=== PATIENT | female | born 1955 | race Caucasian/White ===

== ENCOUNTER 2018-01-30 18:49 | Emergency (ER) | payer OTHER ==
[~2018-01-30] VITALS: Ht 160 cm; Wt 104.3 kg
[~2018-01-30 18:49] MED LIST: ALBUTEROL INH IH; ALEVE220 MG PO; ALLOPURINOL 10100 M1 PO; AMITRIPTYLINE H25 M2 GT; AMITRIPTYLINE H25 M2 PO; ANXIETY MED PO; AUGMENTIN 875875 MG PO; AVELOX 400 MG400 MG PO; BAYER CHEWABLE81 MG PO; FOLIC ACID 1 MG1 MG PO; HYDROCODONE-AP1 EAC6 PO; IBUPROFEN 800800 M1 PO; KEFLEX500 M1 PO; LEVAQUIN 750 M750 MG PO; LEVOTHYROXIN0.125 M1 PO; LEVOTHYROXINE 0.1 MG PO; LEVOTHYROXINE 0.15MG PO; MECLIZINE 25 MG25 M1 PO; MEDROLDOSEPACK PO; MUCINEX600 MG PO; NITROGLYCERIN0.4 MG SUBLING; NOHOMEMEDICATIONS; ONDANSETRON HCL4 M2 PO; PLAVIX 75 MG TA75 M1 PO; PREDNISONE 10 M10 MG PO; PROPANOLOL PO; PROTONIX40 M1 PO; SYNTHROID75 MCG PO; TYLENOL325 MG PO; VALIUM5 MG PO; VENTOLIN HFA 1818 GM INH; ZOLOFT 50 MG TA50 M1 PO; ZOLOFT100 MG PO; ZPAK PO
[2018-01-30 19:38] LABS: ABSOLUTE EOSINOPHILS 0.3 thou/uL (0.0-0.7); ABSOLUTE LYMPHOCYTES 1.8 thou/uL (0.8-5.3); ABSOLUTE MONOCYTES 0.6 thou/uL (0.0-1.2); BASOPHILS 0.5 %; EOSINOPHILS 3.6 %; HEMATOCRIT 38.8 % (37.0-47.0); HEMOGLOBIN 13.3 gm/dL (12.0-15.0); LYMPHOCYTES 22.9 %; MCHC 34.3 g/dL (28.0-37.0); MCV 84.5 fL (80.0-100.0); MONOCYTES 7.6 %; MPV 7.5 fl. (7.2-11.1); NUCLEATED RBCS 0 /100WBC; PLATELET COUNT* 219 thou/uL (150-400); POLYS 65.4 %; RBC 4.59 mil/uL (4.20-5.00); RDW-CV 13.7 % (10.5-14.5); WBC 7.7 thou/uL (4.0-11.0)
[2018-01-30 19:44] LABS: CALCIUM 8.5 mg/dL (8.5-10.1); CREATININE 0.8 mg/dL (0.6-1.3)
[2018-01-30 19:49] LABS: ALBUMIN 3.2 g/dL (3.4-5.0); TOTAL PROTEIN 7.2 g/dL (6.4-8.2)
[2018-01-30 19:50] LABS: INFLUENZA A ANTIGEN None Detected (None Detect); INFLUENZA B ANTIGEN None Detected (None Detect)
[2018-01-30] MEDS ORDERED: PREDNISONE 20 M20 MG PO (20:36)
[2018-01-30] MEDS ORDERED: AMOXICILLIN 50500 MG PO (20:36)
[2018-01-30] MEDS ORDERED: DELSYM COU30 MG/5 M1 PO (20:36)
[2018-01-30] MEDS ORDERED: PROAIR HFA8.5 GM INH (20:36)
[2018-01-30 20:52] VITALS: BP 142/48
--- NOTE | 2018-01-31 09:54 | EKG ---
[place] [address] ELECTROCARDIOGRAM REPORT Name: ARI TREVINO Room: [facility]#: [id number] Admission: 01/30/18 Attend Phys: Discharge: 01/30/18 Date of : 57 Report #: [id number] THIS REPORT FOR: //name// [facility] ED Test Date: 2018-01-30 Test Time: 20:04:15 Pat Name: ARI TREVINO Department: Room: Gender: F [employer]door [employer] Instructor: DENIA Pa : [id number] Requested By: Wilberto Hazel Order Number: [id number] MD: Stephen Lazo Measurements Intervals [place] Rate: 61 P: 35 W[place]: 198 QRS: -28 QRSD: 107 T: 57 QT: 417 QTc: 420 Interpretive Statements Sinus rhythm Incomplete RBBB and LAFB Compared to ECG 08/04/2016 20:10:56 Incomplete right bundle-branch block now present Electronically Signed On 01-31-2018 9:54:34 CDT by Stephen Lazo [email or web address] <ELECTRONICALLY SIGNED> By: Stephen Lazo MD, [facility] 01/31/18 0954 03 03 Setphen Lazo MD, FAC /EPI
== END 2018-01-30 20:53 | disposition home or self-care (01) ==
LOC: M.ERS 18:49
PROVIDERS: Nurse Practitioner Psychiatric/Mental Health
DX: J20.9 Acute bronchitis, unspecified (principal); L40.9 Psoriasis, unspecified; Z88.2 Allergy status to sulfonamides

== ENCOUNTER 2018-03-06 17:04 | Emergency (ER) | payer OTHER ==
[~2018-03-06] VITALS: Ht 160 cm; Wt 109.8 kg
[~2018-03-06 17:04] MED LIST changes: +AMOXICILLIN 50500 MG PO; +DELSYM COU30 MG/5 M1 PO; +PREDNISONE 20 M20 MG PO; +PROAIR HFA8.5 GM INH
[2018-03-06 17:43] LABS: ABSOLUTE BASOPHILS 0.1 thou/uL (0.0-0.2); ABSOLUTE EOSINOPHILS 0.2 thou/uL (0.0-0.7); ABSOLUTE LYMPHOCYTES 1.8 thou/uL (0.8-5.3); ABSOLUTE MONOCYTES 0.8 thou/uL (0.0-1.2); ABSOLUTE NEUTROPHILS 9.4 thou/uL (1.6-8.1); BASOPHILS 0.4 %; EOSINOPHILS 1.4 %; HEMATOCRIT 40.5 % (37.0-47.0); HEMOGLOBIN 13.9 gm/dL (12.0-15.0); LYMPHOCYTES 14.9 %; MCH 28.7 pg (26.0-34.0); MCHC 34.4 g/dL (28.0-37.0); MCV 83.5 fL (80.0-100.0); MONOCYTES 6.7 %; MPV 7.6 fl. (7.2-11.1); NUCLEATED RBCS 0 /100WBC; PLATELET COUNT* 179 thou/uL (150-400); POLYS 76.6 %; RBC 4.85 mil/uL (4.20-5.00); RDW-CV 13.7 % (10.5-14.5); WBC 12.3 thou/uL (4.0-11.0)
[2018-03-06 17:52] LABS: CALCIUM 8.5 mg/dL (8.5-10.1); CREATININE 0.9 mg/dL (0.6-1.3)
[2018-03-06 18:07] LABS: ALBUMIN 3.2 g/dL (3.4-5.0); TOTAL BILIRUBIN 1.5 mg/dL (<0.1-1.0)
[2018-03-06] MEDS ORDERED: AZITHROMYCIN 2250 MG PO (18:46)
[2018-03-06] MEDS ORDERED: PREDNISONE 20 M20 MG PO (18:46)
[2018-03-06] MEDS ORDERED: SPACE CHAMBER1 EACH INH (18:46)
[2018-03-06] MEDS ORDERED: VENTOLIN HFA 1818 GM INH (18:46)
[2018-03-06] MEDS ORDERED: ALBUTEROL2.5 MG/0.5 INH (18:50)
[2018-03-06 19:40] VITALS: BP 125/41
== END 2018-03-06 19:47 | disposition home or self-care (01) ==
LOC: M.ERS 17:04
PROVIDERS: Nurse Practitioner Psychiatric/Mental Health
DX: J20.9 Acute bronchitis, unspecified (principal); Z90.49 Acquired absence of other specified parts of digestive tract; Z88.1 Allergy status to other antibiotic agents; Z88.8 Allergy status to other drugs, medicaments and biological substances

== ENCOUNTER 2019-10-09 08:41 | Emergency (ER) | payer OTHER ==
[~2019-10-09] VITALS: Ht 160 cm; Wt 108.0 kg
[~2019-10-09 08:41] MED LIST changes: +ALBUTEROL2.5 MG/0.5 INH; +AZITHROMYCIN 2250 MG PO; +SPACE CHAMBER1 EACH INH
[2019-10-09] MEDS ORDERED: METFORMIN HCL500 M3 PO (09:02)
[2019-10-09] MEDS ORDERED: B/P MED (09:02)
[2019-10-09] MEDS ORDERED: ANXIETY MED (09:02)
[2019-10-09] MEDS ORDERED: ZPAK PO (09:18)
[2019-10-09] MEDS ORDERED: VENTOLIN HFA 1818 GM INH (09:18)
[2019-10-09] MEDS ORDERED: PREDNISONE 20 M20 M1 PO (09:18)
[2019-10-09 09:55] VITALS: BP 118/54
== END 2019-10-09 09:57 | disposition home or self-care (01) ==
LOC: M.ERS 08:41
DX: J40 Bronchitis, not specified as acute or chronic (principal); I10 Essential (primary) hypertension; F41.9 Anxiety disorder, unspecified; E11.9 Type 2 diabetes mellitus without complications; I25.2 Old myocardial infarction; Z90.49 Acquired absence of other specified parts of digestive tract; Z88.2 Allergy status to sulfonamides

== ENCOUNTER 2019-11-29 17:36 | Inpatient (IN) | payer OTHER ==
[~2019-11-29] VITALS: Ht 160 cm; Wt 106.6 kg
[~2019-11-29 17:36] MED LIST changes: +B/P MED; +HYDROXYZINE HCL25 M2 PO; +METFORMIN HCL500 M3 PO; +PREDNISONE 20 M20 M1 PO
[2019-11-29 17:47] VITALS: BP 107/44
[2019-11-29 19:44] LABS: INFLUENZA A ANTIGEN Negative (Negative); INFLUENZA B ANTIGEN Negative (Negative)
[2019-11-29 20:02] LABS: ABSOLUTE LYMPHOCYTES 1.2 thou/uL (0.8-5.3); ABSOLUTE MONOCYTES 0.6 thou/uL (0.0-1.2); ABSOLUTE NEUTROPHILS 3.6 thou/uL (1.6-8.1); BASOPHILS 0.2 %; EOSINOPHILS 0.3 %; HEMOGLOBIN 13.6 gm/dL (12.0-15.0); LYMPHOCYTES 21.7 %; MCH 29.2 pg (26.0-34.0); MCV 83.5 fL (80.0-100.0); MONOCYTES 11.3 %; MPV 8.3 fl. (7.2-11.1); NUCLEATED RBCS 0 /100WBC; PLATELET COUNT* 120 thou/uL (150-400); POLYS 66.5 %; RBC 4.67 mil/uL (4.20-5.00); RDW-CV 14.3 % (10.5-14.5); WBC 5.4 thou/uL (4.0-11.0)
[2019-11-29 20:04] LABS: POTASSIUM 3.6 mmol/L (3.5-5.1)
[2019-11-29 20:09] LABS: ALBUMIN 3.1 g/dL (3.4-5.0); MAGNESIUM 1.6 mg/dL (1.8-2.4); TOTAL BILIRUBIN 1.4 mg/dL (<0.1-1.0); TOTAL PROTEIN 6.8 g/dL (6.4-8.2)
[2019-11-29 20:48] LABS: URINE BLOOD 2+ (Negative); URINE COLOR YELLOW; URINE GLUCOSE-RANDOM NEGATIVE (Negative); URINE KETONES TRACE (Negative); URINE PROTEIN 1+ (Negative)
[2019-11-29 20:56] LABS: URINE BILIRUBIN 1+ (Negative); URINE LEUKOCYTES-REFLEX 2+ (Negative); URINE NITRITE-REFLEX POSITIVE (Negative)
[2019-11-29 20:57] LABS: ICTOTEST (BILI CONFIRMATORY) Negative (Negative); URINE CLARITY CLOUDY
[2019-11-29 21:10] LABS: SQUAMOUS 4-10 Moderate /LPF (0-3)
[2019-11-29 21:11] LABS: BACTERIA-REFLEX >30 Many /HPF (None Seen); CASTS None Seen /LPF (None Seen); CRYSTALS None Seen /LPF (None Seen); URINE RBC 3-10 Few /HPF (0-2); URINE WBC-REFLEX >25 Many /HPF (0-5)
[2019-11-29 23:00] VITALS: BP 112/56; BP 124/47
--- NOTE | 2019-11-30 03:38 | NUR ---
PATIENT ARRIVED FROM ER VIA CART TO ROOM 311. PT ABLE TO TRANSFER FROM CART TO BED WITH CLOSE STANDBY. PT ON O2 @ 2 LITERS PER NASAL CANNULA. PT GIVEN PAIN MEDS IN ER AND DENIES PAIN AT THIS TIME. PT IS FROM HOME WITH HER , DAUGHTER AND GRANDCHILDREN. PT WITH SEVERE REDNESS AND ODOR BELIEVED TO BE YEAST UNDER BREASTS, BETWEEN LEGS AND IRIS AREA. PT ALSO HAS SMALL SCABBED BITES ALL OVER HER BODY. PT HAD UNDER BREAST AND IRIS AREA CLEANED AND RX CREAM PUT ON IN ER. PT REFUSING PICTURES AT THIS TIME STATING IT HURTS TO RAISE BREASTS AND MOVE LEGS TO EXPOSE IRIS AREA FOR PICTURE. EXPLAINED TO PT THAT SHE HAD A RIGHT TO REFUSE BUT BENEFICIAL TO HAVE PICTURES TO MAKE SURE AREAS ARE IMPROVING WITH TREATMENT. PT AGREED TO HAVE PICS TAKEN LATER. PT WITH DIMINISHED LUNG SOUNDS AND PRODUCTIVE COUGH. PT ORIENTED TO ROOM/POLICIES AND VERBALIZES UNDERSTANDING. FREQUENTLY USED ITEMS AND CALL LIGHT WITHIN REACH. SIDERAILS UPX2 AND BED ALARM ON. WILL CONTINUE TO MONITOR.
[2019-11-30 08:00] VITALS: BP 135/48
[2019-11-30 17:46] VITALS: BP 135/56
[2019-12-01] VITALS: BP 123/60
[2019-12-01 05:37] LABS: GLYCOHEMOGLOBIN (HGB A1C) 6.6 % (4.8-5.6)
[2019-12-01 06:17] LABS: HEMATOCRIT 34.6 % (37.0-47.0); HEMOGLOBIN 12.2 gm/dL (12.0-15.0); MCH 29.3 pg (26.0-34.0); MCHC 35.2 g/dL (28.0-37.0); MCV 83.2 fL (80.0-100.0); MPV 8.2 fl. (7.2-11.1); RBC 4.16 mil/uL (4.20-5.00); RDW-CV 14.5 % (10.5-14.5); WBC 4.7 thou/uL (4.0-11.0)
[2019-12-01 06:32] LABS: ALBUMIN 2.7 g/dL (3.4-5.0); CALCIUM 7.4 mg/dL (8.5-10.1); CREATININE 0.7 mg/dL (0.6-1.3); POTASSIUM 4.1 mmol/L (3.5-5.1); TOTAL BILIRUBIN 0.6 mg/dL (<0.1-1.0); TOTAL PROTEIN 6.1 g/dL (6.4-8.2)
[2019-12-01 08:15] VITALS: BP 129/52
[2019-12-01 16:00] VITALS: BP 135/52
--- NOTE | 2019-12-01 17:40 | NUR ---
ALERT AND ORIENTED X4. UP WITH STAND BY ASSIST TO BEDSIDE COMMODE. CONTINUES TO RECEIVE IV AND PO ANTIBIODICS AND BREATHING TREATMENTS WITHOUT ADVERSE REACTIONS OR SIDE EFFECTS. DENIES NEED FOR PAIN MEDICATIONS. AREAS UNDER BREAST AND IN GROIN AREAS TREATMENTS DONE AND NEW INTERDRY APPLIED. IV LEAKING SO NEW IV STARTED. CONTINENT OF BOWEL AND BLADDER. CALL LIGHT WITHIN REACH. REMAINS ON O2 AT 2L/NC TO KEEP O2 SAT IN 90'S,
[2019-12-01 20:00] VITALS: BP 132/58
[2019-12-02 04:57] LABS: HEMATOCRIT 34.5 % (37.0-47.0); MCH 29.4 pg (26.0-34.0); MCHC 34.8 g/dL (28.0-37.0); MCV 84.3 fL (80.0-100.0); MPV 8.5 fl. (7.2-11.1); RBC 4.09 mil/uL (4.20-5.00); RDW-CV 14.4 % (10.5-14.5)
[2019-12-02 05:21] LABS: CALCIUM 7.3 mg/dL (8.5-10.1); CREATININE 0.8 mg/dL (0.6-1.3); MAGNESIUM 1.9 mg/dL (1.8-2.4)
--- NOTE | 2019-12-02 07:00 | NUR ---
PT SLEPT WELL OVERNIGHT. HS ACCUCHECK 299, INSULIN GIVEN. AM LABS. RAC SL. O2 2L NC. UP WITH SBA TO BSC TO VOID WITHOUT DIFFICULTY. SKIN UNDER BREASTS AND ABD FOLDS AND IRIS AREA VERY MOIST AND RED. AREAS CLEANSED THIS MORNING WITH SOAP AND WATER, PATTED DRY AND NYSTATIN CREAM AND POWDER APPLIED. INTERDRY APPLIED. ABLE TO USE CALL LITE AND MAKE NEEDS KNOWN.
[2019-12-02 07:40] VITALS: BP 142/57
--- NOTE | 2019-12-02 13:17 | NUR ---
Nutrition: screen for BMI >40. Wt up past few years. Albumin 2.7. Prednisone and other meds reviewed. Pt reported some trouble chewing but declined soft/mech alt diet. Had eaten 75% of lunch at visit and was not finished eating. Pt does not appear at significant nutrition risk at this time.
--- NOTE | 2019-12-02 15:17 | NUR ---
SW met with pt to complete initial assessment, introduce self, and SW role. Pt alert, oriented. Pt lives at home with . Pt does not have any DME at home already. Pt does not have insurance. SW explained to accept call from [employer] as they are company who can assist pt with determining eligibility for Medicaid as well as assist with applying for Medicaid. SW mentioned possible assistance and support needed at dc; pt did not seem concerned with dc home with . SW to continue to follow to assist with safe dc planning.
[2019-12-02 16:00] VITALS: BP 151/59
--- NOTE | 2019-12-02 17:00 | NUR ---
PT A&OX4 VSS. NYSTATIN AND INTERDRY UNDER BREASTS AND ABD FOLDS TO TREAT YEAST. PT UP TO RECLINER AND TO RESTROOM WITH SBA AND WALKER. GAIT STEADY. MULTIPLE SMALL SCABS OVER TORSO NOTED AND REPORTED TO BE PRESENT UPON ADMISSION. PT ON 2L O2 BY NASAL CANNULA. PT IS ACCUCHECK, INSULN ADMINISTERED INDICATED. VANC TROUGH DRAWN THIS AM AND DOSE ADJUSTED BY PHARMACY. IV TO RAC, LINE PATENT, NO REDNESS/SWELLING NOTED AT SITE. PT RESTS IN ROOM AT THIS TIME WITH CALL LIGHT IN REACH. WILL CONTINUE TO MONITOR.
[2019-12-03 00:30] VITALS: BP 135/48
--- NOTE | 2019-12-03 05:11 | NUR ---
PT SLEPT OFF AND ON OVERNIGHT. HS ACCUCHECK 314, INSULIN GIVEN WITH SNACK. PT AMBULATES WITH SBA WALKER, GB TO BR TO VOID OVERNIGHT. O2 2L. NEW IV RFA SL, ABX GIVEN ORDERED. NO LABS THIS MORNING. SKIN CARE GIVEN TO FOLDS UNDER BREASTS, PANNUS AND PERIAREA- CLEANSED, ANTIFUNGAL CREAM, NYSTATIN POWDER AND INTER DRY APPLIED AT HS. AOX4, PLEASANT. ABLE TO USE CALL LITE AND MAKE NEEDS KNOWN. LIDOCAINE PATCH REMOVED AT HS FROM R BREAST. BED ALARM ON OVERNIGHT FOR SAFETY.
[2019-12-03 07:50] VITALS: BP 137/55
--- NOTE | 2019-12-03 12:01 | NUR ---
SW discussed possibility of HH services at dc with agency to provide [facility] follow up, Dr Rey agreed to follow until pt is established with a PCP. Intake at [facility] to review referral and consider providing HH follow up services at pt dc. SW to continue to follow to assist with safe dc planning.
[2019-12-03 17:20] VITALS: BP 140/50
--- NOTE | 2019-12-03 17:55 | NUR ---
PATIENT AWAKE IN CHAIR. PATIENT AMBULATING WITH WALKER, ASSISTANCE, AND GAIT BELT THIS SHIFT. ALL SAFETY MEASURES MAINTAINED. PATIENT DENIES FURTHER NEEDS AT THIS TIME.
[2019-12-03 21:00] VITALS: BP 151/48
--- NOTE | 2019-12-04 05:52 | NUR ---
PATIENT SLEPT MOST OF THE NIGHT. IV REMAINS SALINE LOCKED. IV VANC WAS GIVEN ORDERED. PATIENT HAD NO COMPLAINTS OF PAIN. WILL CONTINUE TO MONITOR.
[2019-12-04 07:14] VITALS: BP 136/48
[2019-12-04 16:23] VITALS: BP 132/50
--- NOTE | 2019-12-04 17:11 | NUR ---
PATIENT RESTING IN BED. PATIENT IS UP STANDBY ASSIST WITH WALKER. PATIENT DENIES NEED FOR PAIN MEDICATION. PATIENT WAS UP TO SHOWER THIS AFTERNOON. FRESH INTERDRY PLACED TO ABDOMINAL FOLDS AFTER SHOWER. PATIENT HAS GOOD APPETITE. PATIENT DENIES ANY NEEDS AT THIS TIME. CALL LIGHT WITHIN REACH.
[2019-12-05 03:35] VITALS: BP 150/48
--- NOTE | 2019-12-05 05:14 | NUR ---
PT ALERT AND ORIENTED X4, POLITE AND COOPERATIVE WITH CARES. IV SALINE LOCKED. NO C/O PAIN. ON ROOM AIR. UP WITH SBA AND WALKER. SKIN CARE TO FOLDS UNDER BREASTS, PANNUS AND IRIS AREAS. USES CALL LIGHT APPROPRIATELY. CALL LIGHT AND FREQUENTLY USED ITEMS IN REACH. BED ALARM ON FOR SAFETY. HOURLY ROUNDING IN PROGRESS, WILL CONTINUE TO MONITOR.
[2019-12-05 07:45] VITALS: BP 134/44
[2019-12-05] MEDS ORDERED: FLUCONAZOLE 10100 MG PO (11:05)
[2019-12-05] MEDS ORDERED: NYAMYC15 GM TOP (11:05)
[2019-12-05] MEDS ORDERED: LIDOPATCH1 EACH TOP (11:05)
[2019-12-05] MEDS ORDERED: CEFDINIR300 MG PO (11:05)
[2019-12-05] MEDS ORDERED: GLUCOPHAGE850 MG PO (11:05)
[2019-12-05 11:16] VITALS: BP 134/44
--- NOTE | 2019-12-05 12:05 | NUR ---
PATIENT DISCHARGED TO HOME WITH HOME HEALTH. DISCHARGE PAPERS REVIEWED AND SIGNED. PRESCRIPTIONS TRANSMITTED TO PHARMACY AND INFORMATION SHEETS GIVEN. IV REMOVED. PATIENT DENIES ANY FURTHER NEEDS. PATIENT TAKEN BY WHEELCHAIR TO EXIT. LEFT WITH .
--- NOTE | 2019-12-05 14:18 | NUR ---
SW faxed final orders and discharge information for pt HH services to [facility].
== END 2019-12-05 12:05 | disposition home health service (06) | DRG 193 ==
LOC: M.ERS 17:36 → M.3W 22:00 → M.TBA-ER 22:00 → M.3W 23:17
PROVIDERS: Nurse Practitioner Family; Personal Emergency Response Attendant; ADMIT Internal Medicine
DX: J18.9 Pneumonia, unspecified organism (principal); J96.01 Acute respiratory failure with hypoxia; R65.11 Systemic inflammatory response syndrome (SIRS) of non-infectious origin with acute organ dysfunction; N39.0 Urinary tract infection, site not specified; L03.319 Cellulitis of trunk, unspecified; B96.89 Other specified bacterial agents as the cause of diseases classified elsewhere; L40.9 Psoriasis, unspecified; B36.8 Other specified superficial mycoses; I10 Essential (primary) hypertension; E11.9 Type 2 diabetes mellitus without complications; F41.9 Anxiety disorder, unspecified; R15.9 Full incontinence of feces; G25.0 Essential tremor; I25.10 Atherosclerotic heart disease of native coronary artery without angina pectoris; B35.4 Tinea corporis; Z79.51 Long term (current) use of inhaled steroids; Z79.899 Other long term (current) drug therapy; Z79.84 Long term (current) use of oral hypoglycemic drugs; I25.2 Old myocardial infarction; Z90.49 Acquired absence of other specified parts of digestive tract; Z88.1 Allergy status to other antibiotic agents; Z88.2 Allergy status to sulfonamides; Z91.048 Other nonmedicinal substance allergy status; Z79.4 Long term (current) use of insulin; Z79.2 Long term (current) use of antibiotics; Z28.21 Immunization not carried out because of patient refusal